=== PATIENT | female | born 1975 | race Caucasian/White ===

== ENCOUNTER 2017-05-18 03:35 | Inpatient (IN) | payer MEDICAID ==
[~2017-05-18] VITALS: Ht 157.5 cm; Wt 68.2 kg
[2017-05-18 03:38] VITALS: BP 100/69
--- NOTE | 2017-05-18 03:45 | NUR ---
PATIENT AMBULATED TO ER BED 11.
--- NOTE | 2017-05-18 03:47 | NUR ---
PATIENT IS A 41 Y/O FEMALE WHO PRESENTS TO THE ED C/O ABD PAIN. PT STATES, "MY STOMACH STARTED HURTING." PT REPORTS 9/10 ACHING RIGHT UPPER QUADRANT PAIN THAT DOES NOT RADIATE. PT DENIES CP, SOB, N/V/D. PT AAOX4, RR EVEN/UNLABORED. PT REPOSITIONED FOR COMFORT, BED IN LOWEST POSITION. ER MD DR. MONTIEL NOTIFIED. WILL CONTINUE TO MONITOR.
[2017-05-18] MEDS ORDERED: MORPHINE SULFATE 2 MG/ML SYR IVP ONE (04:30)
--- NOTE | 2017-05-18 04:34 | NUR ---
UA DONE, HCG NEG
[2017-05-18 05:26] LABS: EOSINOPHILS # (AUTO) 0.1 K/uL (0-0.4); HEMOGLOBIN 9.1 g/dL (12.0-16.0); LYMPHOCYTES % (AUTO) 18.9 % (20.5-51.1); NEUTROPHILS # (AUTO) 8.4 K/uL (1.8-7.7); WHITE BLOOD COUNT (AUTO) 11.9 K/uL (4.8-10.8)
[2017-05-18 05:28] LABS: BASOPHILS # (AUTO) 0.2 K/uL (0.00-0.22); BASOPHILS % (AUTO) 1.6 % (0.0-2.0); HEMATOCRIT 29.5 % (36-48); LYMPHOCYTES # (AUTO) 2.2 K/uL (2.5-16.5); MEAN CORPUSCULAR HEMOGLOBIN 21 pg (27-31); MEAN CORPUSCULAR HGB CONC 31 g/dL (33-37); MEAN CORPUSCULAR VOLUME 69 fL (80-94); MONOCYTES % (AUTO) 8.2 % (1.7-9.3); NEUTROPHILS % (AUTO) 70.3 % (42.2-75.2); PLATELET COUNT (AUTO) 468 K/uL (140-450); RED BLOOD CELL COUNT(AUTO) 4.29 MIL/uL (4.20-5.40); RED CELL DISTRIBUTION WIDTH 16.1 % (11.6-13.7)
--- NOTE | 2017-05-18 05:30 | NUR ---
PATIENT IS RESTING AT THIS TIME. FAMILY AT BEDSIDE.
[2017-05-18 05:36] LABS: ANION GAP 8.4 (8-16); CARBON DIOXIDE 30.5 mmol/L (21-32); CREATININE 0.7 mg/dL (0.6-1.3); POTASSIUM 3.9 mmol/L (3.5-5.1)
[2017-05-18 05:42] LABS: ALBUMIN 3.6 g/dL (3.4-5.0); TOTAL BILIRUBIN 0.4 mg/dL (0.0-1.0)
[2017-05-18] MEDS ORDERED: ACETAMINOPHEN 325 MG TAB PO PRN (06:05)
[2017-05-18] MEDS ORDERED: ONDANSETRON 4 MG/2 ML VIAL IVP PRN (06:05)
--- NOTE | 2017-05-18 06:25 | NUR ---
Patient will be admitted to care of DR. BAE. Admited to M/S. Will go to room 106A. Belongings list completed. Report to CHAD ALVARENGA.
[2017-05-18 06:29] LABS: BILIRUBIN,URINE NEGATIVE (NEGATIVE); BLOOD, URINE 3+ (NEGATIVE); COLOR,URINE YELLOW (YELLOW); LEUKOCYTE ESTERASE ,URINE NEGATIVE (NEGATIVE); NITRITE, URINE NEGATIVE (NEGATIVE); PH,URINE 6.5 (5.0-9.0); UGLUCOSE NEGATIVE (NEGATIVE)
[2017-05-18] MEDS ORDERED: metroNIDAZOLE 500 MG/NS PREMIX 100 ML IV SCH (06:30)
[2017-05-18] MEDS ORDERED: LEVOFLOXACIN 750 MG/D5W PREMIX 150 ML IV SCH (06:30)
--- NOTE | 2017-05-18 06:30 | NUR ---
RECEIVED PATIENT FROM ER. PATIENT IN STABLE CONDITION. HERNAN
[2017-05-18 06:40] LABS: APPEARANCE,URINE HAZY (CLEAR)
[2017-05-18 06:48] LABS: BARBITURATE, URINE NEG. ng/ml (NEG <=200); BENZODIAZEPINE, URINE NEG. ng/mL (NEG <=200); CANNABINOID, URINE NEG. ng/mL (NEG <=50); COCAINE, URINE NEG. ng/mL (NEG <=300); OPIATE, URINE NEG. ng/mL (NEG <=2000); PHENCYCLIDINE SCREEN,URINE NEG. ng/mL (NEG <=25)
[2017-05-18] MEDS: NACL 0.9% 1,000 ML IV SCH (07:01)
--- NOTE | 2017-05-18 07:15 | NUR ---
ENDORSED PLAN OF CARE TO AM RN. PATIENT IN STABLE CONDITION.
[2017-05-18 07:18] LABS: RBC,URINE 20-50 /HPF (0-5); WBC,URINE 0-5 (RARE) /HPF (0-5)
--- NOTE | 2017-05-18 07:20 | NUR ---
RECEIVED PATIENT REPORT AT BEDSIDE FROM NIGHT NURSE. PATIENT IS SLEEPING COMFORTABLY AND SHOWS NO S/S OF ACUTE DISTRESS, IVF'S INFUSING WELL, EASILY AWAKEN, STATES ABD PAIN, SKIN INTACT, DISCUSSED PATIENT POC, SAFETY PRECAUTIONS AND PATIENT VERBALIZED UNDERSTANDING, BED IN LOW POSITION WITH CALL LIGHT WITHIN REACH.
[2017-05-18 07:21] LABS: CHOL/HDL RATIO 4.2 (1-4.5); FREE T4 (FREE THYROXINE) 1.04 ng/dL (0.76-1.46); MAGNESIUM 1.9 mg/dL (1.8-2.4); PHOSPHORUS 3.3 mg/dL (2.5-4.9); THYROID STIMULATING HORMONE 3.22 uIU/mL (0.34-3.74)
[2017-05-18] MEDS: HYDROcodone/APAP 7.5/325 MG 1 TAB PO PRN ×2 (07:45→17:54)
[2017-05-18 08:18] VITALS: BP 98/59
[2017-05-18] MEDS: LACTOBACILLUS RHAMNOSUS GG 1 EACH CAP PO SCH (09:05)
[2017-05-18] MEDS: DOCUSATE SODIUM 100 MG GELCAP PO SCH ×3 (09:06→21:28)
--- NOTE | 2017-05-18 09:13 | NUR ---
ADMINISTERED SCHEDULED MEDICATIONS, PATIENT SWALLOWED WITHOUT DIFFICULTY, STATES TOLERABLE PAIN OF 4/10, ALL NEEDS MET AT THIS TIME.
--- NOTE | 2017-05-18 10:42 | NUR ---
PATIENT SLEEPING AND SHOWS NO S/S OF ACUTE DISTRESS ON ROOM AIR.
[2017-05-18] MEDS ORDERED: NEOSTIGMINE 1:1000 10 MG/10 ML VIAL IM ONE (13:00)
[2017-05-18] MEDS ORDERED: GLYCOPYRROLATE 0.2 MG/ML VIAL IV ONE (13:00)
[2017-05-18] MEDS ORDERED: PROPOFOL 200 MG/20 ML VIAL IV ONE (13:00)
[2017-05-18] MEDS ORDERED: ROCURONIUM 50 MG/5 ML VIAL IV ONE (13:00)
[2017-05-18] MEDS ORDERED: DESFLURANE 240 ML BTL INH ONE (13:00)
[2017-05-18] MEDS ORDERED: ONDANSETRON 4 MG/2 ML VIAL IVP ONE (13:00)
[2017-05-18] MEDS ORDERED: KETOROLAC 60 MG/2 ML VIAL IM ONE (13:00)
[2017-05-18] MEDS ORDERED: SUCCINYLCHOLINE CHLORIDE 200 MG/10 ML VIAL IV ONE (13:00)
--- NOTE | 2017-05-18 13:02 | NUR ---
PT TAKEN TO OR AT THIS TIME.
[2017-05-18] MEDS ORDERED: fentaNYL 0.05 MG/ML VIAL ONE (13:13)
[2017-05-18] MEDS ORDERED: MORPHINE SULFATE 4 MG/ML SYR ONE ×2 (13:13→15:01)
[2017-05-18] MEDS ORDERED: MIDAZOLAM 2 MG/2 ML VIAL ONE (13:13)
[2017-05-18] MEDS ORDERED: BUPIVACAINE-MPF 0.25% 30 ML VIAL INJ ONE (13:19)
[2017-05-18] MEDS ORDERED: MORPHINE SULFATE 4 MG/ML SYR IVP PRN ×2 (14:10)
[2017-05-18] MEDS ORDERED: MIDAZOLAM 2 MG/2 ML VIAL IV ONE (14:10)
[2017-05-18] MEDS ORDERED: MORPHINE SULFATE 2 MG/ML SYR IVP PRN ×2 (14:10→20:00)
[2017-05-18] MEDS ORDERED: METOCLOPRAMIDE 10 MG/2 ML INJ VIAL IVP PRN (14:10)
--- NOTE | 2017-05-18 15:35 | NUR ---
PATIENT CAME BACK FROM OR IN STABLE CONDITION. PATIENT AMB TO AND DENIED DIZZINESS. PATIENT VOIDED. SHE IS NOW IN BED AND SHOWS NO S/S OF ACUTE DISTRESS. PATIENT DID C/O 8/ PAIN HOWEVER PATIENT WAS ALREADY GIVEN 4 MG OF MORPHINE AT 1500. PATIENT IS AWARE, SHE IS EATING ICE CHIPS AND SWALLOWING WITHOUT DIFFICULTY. ALL NEEDS MET AT THIS TIME.
[2017-05-18 16:00] VITALS: BP 114/65
--- NOTE | 2017-05-18 17:37 | NUR ---
PATIENT IS SLEEPING, AND SHOWS NO S/S OF ACUTE DISTRESS ON ROOM AIR, AT BEDSIDE.
--- NOTE | 2017-05-18 17:46 | NUR ---
GAVE PATIENT REPORT TO MARGA ALVARENGA.
--- NOTE | 2017-05-18 19:21 | NUR ---
Patient's Plan of Care was discussed and reviewed with GENERAL LABORER: MARITA LANE
--- NOTE | 2017-05-18 19:21 | NUR ---
PATIENT REPORT GIVEN AT BEDSIDE. PATIENT ENDORSED IN STABLE CONDITION
--- NOTE | 2017-05-18 19:22 | NUR ---
RECD. RESTING IN BED, AWAKE, A/OX4, RESPIRATION EVEN AND UNLABORED. ON IV OF NS AT 50 ML/HR, RIGHT HAND G20. S/P LAP APPENDECTOMY, INCISION IN THE ABDOMEN (5) COVERED WITH STERI STRIPS, DRY AND INTACT. AMBULATING WELL FROM BED VOIDING WELL. NO BM, NOT YET PASSING GAS. ENCOURAGED TO AMBULATE MORE. OCCASIONALLY NAUSEOUS, NO N/V NOTED AT THIS TIME. PAIN IN THE ABDOMEN 03/12, STATED TOLERABLE. PLAN OF CARE FOR THE SHIFT DISCUSSED. VERBALIZED UNDERSTANDING.
[2017-05-18 19:54] VITALS: BP 113/63
--- NOTE | 2017-05-19 00:40 | NUR ---
ASSISTED OUT OF BED, AMBULATED IN THE HALLWAY FOR 5 MINUTES, TOLERATED WELL.
[2017-05-19 00:53] VITALS: BP 101/46
[2017-05-19] MEDS: HYDROcodone/APAP 7.5/325 MG 1 TAB PO PRN ×2 (00:53→08:57)
[2017-05-19] MEDS: NACL 0.9% 1,000 ML IV SCH (02:03)
--- NOTE | 2017-05-19 05:00 | NUR ---
ASSISTED TO BR TO VOID. BACK TO BED AFTER VOIDING, NOT PASSING GAS, NO BM. ENCOURAGED TO AMBULATE MORE.
--- NOTE | 2017-05-19 06:00 | NUR ---
APPLIED BILATERAL LEG SEQUENTIALS.
[2017-05-19 06:38] LABS: BASOPHILS # (AUTO) 0.1 K/uL (0.00-0.22); BASOPHILS % (AUTO) 1.3 % (0.0-2.0); EOSINOPHILS # (AUTO) 0.1 K/uL (0-0.4); EOSINOPHILS % (AUTO) 0.8 % (0.0-4.0); HEMATOCRIT 26.5 % (36-48); HEMOGLOBIN 8.2 g/dL (12.0-16.0); LYMPHOCYTES # (AUTO) 2.1 K/uL (2.5-16.5); LYMPHOCYTES % (AUTO) 18.7 % (20.5-51.1); MEAN CORPUSCULAR HEMOGLOBIN 21 pg (27-31); MEAN CORPUSCULAR HGB CONC 31 g/dL (33-37); MEAN CORPUSCULAR VOLUME 68 fL (80-94); MONOCYTES # (AUTO) 0.9 K/uL (0.8-1.0); MONOCYTES % (AUTO) 7.7 % (1.7-9.3); NEUTROPHILS % (AUTO) 71.5 % (42.2-75.2); PLATELET COUNT (AUTO) 455 K/uL (140-450); RED BLOOD CELL COUNT(AUTO) 3.91 MIL/uL (4.20-5.40); RED CELL DISTRIBUTION WIDTH 16.4 % (11.6-13.7); WHITE BLOOD COUNT (AUTO) 11.2 K/uL (4.8-10.8)
--- NOTE | 2017-05-19 07:01 | NUR ---
CONDITION REMAIN STABLE. WILL ENDORSE TO AM NURSE FOR CONTINUITY OF CARE.
[2017-05-19 07:06] LABS: ANION GAP 13.1 (8-16); CARBON DIOXIDE 27.6 mmol/L (21-32); CREATININE 0.7 mg/dL (0.6-1.3); POTASSIUM 3.7 mmol/L (3.5-5.1)
[2017-05-19 07:08] LABS: MAGNESIUM 1.8 mg/dL (1.8-2.4); PHOSPHORUS 3.4 mg/dL (2.5-4.9)
--- NOTE | 2017-05-19 07:15 | NUR ---
ENDORSED TO LYLE HARPER FOR CONTINUITY OF CARE.
--- NOTE | 2017-05-19 07:16 | NUR ---
RECEIVED REPORT FROM CHAIR CAR DRIVER NURSE. PATIENT IS AAOX4, NO SIGNS AND SYMPTOM OF ACUTE DISTRESS NOTED AT THIS TIME. PATIENT HAS IV TO THE RIGHT HAND 20G, WITH NS INFUSING AT 50ML/HR. SITE IS INFUSING WELL, AND IS CLEAN, DRY AND INTACT. HAS X5 ABD INCISIONS WITH STERI STRIPS. CLEAN, DRY AND INTACT. DISCUSSED PLAN OF CARE WITH PATIENT AND SHE VERBALIZED UNDERSTANDING. BED IN LOWEST POSITION, SIDE RAILS UP X2, CALL LIGHT WITHIN REACH. WILL CONTINUE TO MONITOR.
[2017-05-19 08:12] VITALS: BP 101/62
[2017-05-19] MEDS: LACTOBACILLUS RHAMNOSUS GG 1 EACH CAP PO SCH (08:57)
[2017-05-19] MEDS: DOCUSATE SODIUM 100 MG GELCAP PO SCH (08:57)
--- NOTE | 2017-05-19 12:42 | NUR ---
CM NOTE ADMISSION REVIEW FOR CRITERIA DONE
[2017-05-19] MEDS ORDERED: ACET-2869 PO (14:37)
[2017-05-19] MEDS ORDERED: DOCU-299 PO (14:37)
--- NOTE | 2017-05-19 17:35 | NUR ---
DISCHARGE ORDER IS IN PLACE. PATIENT SIGNED ALL PAPERS. INFORMED PATIENT THAT THERE IS A PRESCRIPTION FOR HER. GAVE HER INSTRUCTIONS ON POST SURGICAL CARE AT HOME, SIGNS AND SYMPTOMS OF INFECTION AND WHEN TO SEEK EMERGENCY MEDICAL ATTENTION. LET HER KNOW OF HER FOLLOW UP APPOINTMENT AND TO MAKE ONE WITH THE SURGEON. PATIENT VERBALIZED UNDERSTANDING. REMOVED IV FROM SITE AT THIS TIME. CATHETER INTACT. ALL BELONGINGS ARE WITH PATIENT. WILL WALK OUT WITH HER.
[2017-05-20 06:20] LABS: FOLIC ACID 17.9 ng/mL (>3.0)
== END 2017-05-19 17:35 | disposition home or self-care (01) | DRG 225 ==
LOC: MED 03:35 → MTU 06:06
PROVIDERS: ADMIT Student in an Organized Health Care Education/Training Program; ATTEND Student in an Organized Health Care Education/Training Program
PROC: 0DTJ4ZZ Resection of Appendix, Percutaneous Endoscopic Approach (ICD-10-PCS; principal; 2017-05-18 13:30)
DX: K35.80 Unspecified acute appendicitis (principal); N17.0 Acute kidney failure with tubular necrosis; D50.9 Iron deficiency anemia, unspecified; E11.9 Type 2 diabetes mellitus without complications; R31.9 Hematuria, unspecified; K66.0 Peritoneal adhesions (postprocedural) (postinfection); R80.9 Proteinuria, unspecified; Z90.49 Acquired absence of other specified parts of digestive tract; Z98.891 History of uterine scar from previous surgery
CPT/HCPCS: 36415; 71045; 80048; 80053; 80305; 81001; 81025; 82150; 82607; 82728; 82746; 83036; 83540; 83605; 83690; 83735; 83880; 84100; 84439; 84443; 84484; 85025; 85045; 85610; 85730; 86886; 86900; 86901; 87081; 93005; 96374; 99285; J0330; J1885; J1956; J2250; J2270; J2405; J2704; J2710; J3010; J3490; J7030; J7120